=== PATIENT | male | born 1940 | race Caucasian/White ===

== ENCOUNTER 2023-04-12 21:00 | Emergency (ER) | payer OTHER ==
[~2023-04-12] VITALS: Ht 180.3 cm; Wt 80.7 kg
[2023-04-12 21:38] LABS: BASO % 0.3 % (0.0-1.0); HEMATOCRIT 38.1 % (42.0-52.0); LYMPH # 0.6 10*3/uL (1.3-4.4); LYMPH % 4.3 % (27.0-41.0); MEAN CORPUSCULAR HGB 28.3 pg (27.0-31.0); MEAN CORPUSCULAR HGB CONC 33.3 g/dl (33.0-37.0); MEAN PLATELET VOLUME 10.1 fl (9.6-12.3); MONO # 1.1 10*3/uL (0.1-1.0); MONO % 8.2 % (3.0-9.0); NEUT # 11.2 10*3/uL (2.3-7.9); NEUT % 86.4 % (47.0-73.0); PLATELET COUNT AUTOMATED 397 10*3/uL (130-400); RED BLOOD COUNT 4.48 10*6/uL (4.50-5.90); RED CELL DISTRI WIDTH 12.2 % (0-14.5); WHITE BLOOD COUNT 12.9 10*3/uL (4.8-10.8)
[2023-04-12 21:44] LABS: BILIRUBIN Negative (Negative); BLOOD 1+ (Negative); CLARITY Cloudy (Clear); COLOR Yellow (Yellow); GLUCOSE Negative (Negative); KETONE 1+ (Negative); LEUKO ESTERASE 3+ (Negative); NITRITE Negative (Negative); SPECIFIC GRAVITY <= 1.005 (1.001-1.030)
[2023-04-12 21:58] LABS: BACTERIA 3+; WBC TNTC wbc/hpf (0-5)
[2023-04-12 22:06] LABS: ALKALINE PHOSPHATASE 101 U/L (46-116); BUN 11 mg/dl (9-23); CHLORIDE 95 mmol/L (98-107); LIPASE 33 U/L (12-53); POTASSIUM 3.7 mmol/L (3.4-5.1); SGPT/ALT 45 U/L (10-49); TOTAL PROTEIN 6.5 gm/dL (6.0-8.0)
[2023-04-12 22:08] LABS: ACT PARTIAL THROMBO TIME 28.3 SECONDS (20.0-32.1); INTERNATIONAL NORM RATIO 1.2 (2.0-3.5)
== END 2023-04-13 01:31 | disposition short-term general hospital (02) ==
LOC: ED 21:00
PROVIDERS: Internal Medicine
DX: N28.89 Other specified disorders of kidney and ureter (principal); N13.30 Unspecified hydronephrosis; N39.0 Urinary tract infection, site not specified; R41.82 Altered mental status, unspecified